=== PATIENT | male | born 1980 | race Caucasian/White ===

== ENCOUNTER 2023-09-25 17:42 | Emergency (ER) | payer OTHER, SELFPAY ==
--- NOTE | 2023-09-25 | ECG_ITS ---
Test Reason : CHEST PAIN Blood Pressure : / mmHG Vent. Rate : 097 BPM Atrial Rate : 097 BPM P-R Int : 154 ms QRS Dur : 088 ms QT Int : 338 ms P-R-T Axes : 053 -11 022 degrees QTc Int : 429 ms Normal sinus rhythm Nonspecific ST abnormality Abnormal ECG No previous ECGs available Referred By: Generic ED Physician Electronically Signed By:ARAM GRAY
--- NOTE | ~2023-09-25 | XR_ITS ---
EXAMINATION: XR CHEST CLINICAL INFORMATION: Chest pain COMPARISON: None available. TECHNIQUE: Frontal view of the chest was obtained. FINDINGS: There is a 9 cm rounded mass with eggshell calcification in the left upper quadrant. This could be related to the kidney, spleen or even pancreatitis. Please correlate with past history as this is undoubtedly chronic. No significant abnormality is noted involving the heart, lungs, mediastinum, bony thorax or soft tissues. XR/XR chest 1V IMPRESSION: 1. No acute intrathoracic disease. 2. 9 cm rounded mass with eggshell calcification in the left upper quadrant.
[2023-09-25 18:07] LABS: MANUAL DIFF FLAG NO
[2023-09-25 18:08] LABS: Basophils Percent Auto 0.3 % (0-2); Eosinophils Percent Auto 0.4 % (0-4); Hematocrit 42.8 % (42.0-52.0); Hemoglobin 14.8 g/dl (14.0-18.0); Imm Gran Abs Auto 0.02 X10*3/uL (0.00-0.03); Imm Gran Pct Auto 0.2 % (0.0-0.4); Lymphocytes Absolute Auto 2.3 X10*3/uL (1.2-4.9); Lymphocytes Percent Auto 22.4 % (20-40); Mean Corpuscular HGB Conc 34.6 g/dl (31.0-36.0); Mean Corpuscular Hemoglobin 30.3 pg (27.0-33.0); Mean Corpuscular Volume 87.7 fL (80.0-98.0); Mean Platelet Volume 10.1 fL (9.4-12.4); Monocytes Absolute Auto 0.6 X10*3/uL (0.1-1.2); Monocytes Percent Auto 5.6 % (2-11); Neutrophils Absolute Auto 7.4 x10*3/uL (2.0-8.3); Neutrophils Percent Auto 71.1 % (45-73); Platelet Count 288 X10*3/uL (160-400); Red Blood Count 4.88 X10*6/uL (4.60-5.80); Red Cell Distribution Width 13.3 % (11.0-16.0); White Blood Count 10.3 X10*3/uL (4.8-10.8)
[2023-09-25 18:21] LABS: Alanine Aminotransferase 36 U/L (0-40); Albumin Level 4.9 g/dL (3.5-5.0); Alkaline Phosphatase 79 U/L (39-117); Anion Gap 14 (12-20); Aspartate Amino Transferase 24 U/L (5-37); Bilirubin Total 0.4 mg/dL (0.0-1.0); Blood Urea Nitrogen 18 mg/dL (9-16); Calcium 9.9 mg/dL (8.4-10.2); Carbon Dioxide 24 mmol/L (22-29); Chloride 105 mmol/L (96-108); Estimated Glomerular Filt Rate > 60; Glucose Random 110 mg/dL (60-115); Magnesium 2.2 mg/dL (1.6-2.6); Potassium 3.4 mmol/L (3.3-5.1); Sodium 140 mmol/L (135-145); Total Protein 8.5 g/dL (6.5-8.0)
[2023-09-25 18:29] LABS: Troponin-I High Sensitivity < 2.7 ng/L (<3.5-35.0)
[2023-09-25 18:34] VITALS: BP 153/92; PULSE 101; RESP 20; TEMP 36.7; O2SAT 98; BMI 25.1
--- NOTE | 2023-09-25 18:36 | ED_ITS ---
HPI - General Adult General Chief complaint: Chest Pain Stated complaint: Chest pain Related Data Allergies Allergy/AdvReac Type Severity Reaction Status Date / Time Sulfa (Sulfonamide Allergy Itching Verified 09/25/23 18:37 Antibiotics) COUNTS INCLUDE 234 BEDS AT THE [facility] Social History Social History Advance Directives: No Advance Directives Information Provided: No Physical Exam ED Vital Signs: Vital Signs - 24 hr 09/25/23 18:34 Temperature 98.1 F Pulse Rate 101 H Respiratory Rate 20 Blood Pressure 153/92 H Pulse Oximetry 98 Oxygen Delivery Method Room Air BMI result Body Mass Index 25.1 Course Course Course Narrative: This is an RME: Additional HPI, ROS, PE not included below will be deferred to primary provider. This is a 77-vzz[age]-rne-male, with no known medical problems, presenting to the ER with complaints of CP. He states that he had some SOB and felt anxious. SXS have since resolved and he is feeling better. He has an appointment with PCP tomorrow. VSS. Pt under no acute distress. Plan: Labs, EKG, CXR Medical Decision Making Lab Data 09/25/23 18:00 09/25/23 18:00 Labs: Lab Results 09/25/23 Range/Units 18:00 WBC 10.3 (4.8-10.8) X10*3/uL RBC 4.88 (4.60-5.80) X10*6/uL Hgb 14.8 (14.0-18.0) g/dl Hct 42.8 (42.0-52.0) % MCV 87.7 (80.0-98.0) fL MCH 30.3 (27.0-33.0) pg MCHC 34.6 (31.0-36.0) g/dl RDW 13.3 (11.0-16.0) % Plt Count 288 (160-400) X10*3/uL MPV 10.1 (9.4-12.4) fL Immature Gran % (Auto) 0.2 (0.0-0.4) % Neut % (Auto) 71.1 (45-73) % Lymph % (Auto) 22.4 (20-40) % [place] % (Auto) 5.6 (2-11) % Eos % (Auto) 0.4 (0-4) % Baso % (Auto) 0.3 (0-2) % Lymph # (Auto) 2.3 (1.2-4.9) X10*3/uL [place] # (Auto) 0.6 (0.1-1.2) X10*3/uL Eos # (Auto) 0.0 (0.0-0.4) X10*3/uL Baso # (Auto) 0.0 (0.0-0.2) X10*3/uL Abs Immat Gran (auto) 0.02 (0.00-0.03) X10*3/uL Absolute Neuts (auto) 7.4 (2.0-8.3) x10*3/uL Absolute Nucleated RBC 0.000 (0.0-0.012) X10*3/uL Nucleated RBC % (auto) 0.0 (0.0-0.2) /100WBC Sodium 140 (135-145) mmol/L Potassium 3.4 (3.3-5.1) mmol/L Chloride 105 (96-108) mmol/L Carbon Dioxide 24 (22-29) mmol/L Anion Gap 14 (12-20) BUN 18 H (9-16) mg/dL Creatinine 0.88 (0.5-1.4) mg/dL Estim Creat Clear Calc TNP Estimated GFR > 60 Random Glucose 110 (60-115) mg/dL Calcium 9.9 (8.4-10.2) mg/dL Magnesium 2.2 (1.6-2.6) mg/dL Total Bilirubin 0.4 (0.0-1.0) mg/dL AST 24 (5-37) U/L ALT 36 (0-40) U/L Alkaline Phosphatase 79 (39-117) U/L Troponin I High Sens < 2.7 (<3.5-35.0) ng/L Total Protein 8.5 H (6.5-8.0) g/dL Albumin 4.9 (3.5-5.0) g/dL Influenza Type A (PCR) NEGATIVE (Negative) Influenza Type B (PCR) NEGATIVE (Negative) RSV RNA Qual (PCR) NEGATIVE (Negative) SARS-CoV-2 RNA (RT-PCR) NEGATIVE (Negative) Discharge Plan Discharge Clinical Impression: Chest pain Patient Disposition: Left W/O Completing Treatment Interventions: LWBS Worksheet Last Done: 09/25/23 22:11 Discharge Date/Time: 09/25/23 22:11
[2023-09-25 18:43] LABS: Influenza A PCR NEGATIVE (Negative); Influenza B PCR NEGATIVE (Negative); Resp Syncy Virus RNA Qual PCR NEGATIVE (Negative); SARS COV2 PCR INHOUSE NEGATIVE (Negative)
== END 2023-09-25 22:11 | disposition left against medical advice (07) ==
PROVIDERS: Emergency Provider Emergency Medicine
DX: R07.9 Chest pain, unspecified (principal); Z11.52 Encounter for screening for COVID-19; Z20.828 Contact with and (suspected) exposure to other viral communicable diseases
CPT/HCPCS: 0241U; 36415; 71045; 80053; 83735; 84484; 85025; 93005; 99283

== ENCOUNTER → 2023-09-25 17:50 | Outpatient (BNV) | payer OTHER, SELFPAY | PROVIDERS: Emergency Provider Emergency Medicine; Visit Provider Internal Medicine | DX: R07.9 Chest pain, unspecified (principal) | CPT/HCPCS: 93010 ==

== ENCOUNTER 2025-05-17 09:56 | Emergency (ER) | payer OTHER, SELFPAY ==
--- OUTSIDE RECORDS SUMMARY | 2025-05-14 10:10 | XMS_ITS | Encounter Summary ---
Author Organization [facility] Address [address] [place] [id number] Phone Care Team Providers Care Sanitation Worker Cleaning Machinery Name Role Phone Anisha Jameson KELLY Primary Care Provider [phone] Rabia Payne MD Unavailable [phone] Reason for Visit * Reason Comments Rash Red, raised, itchy a nd tender rash x 1 month with worsening. Tx'd with Triamcinolone that didn't help. Now has swollen lymph nodes in left axilla. Encounter Details Date Type Department Care Team (Late st Contact Info) Description 05/14/2025 10:10 AM EST Office Visit [facility] [address] [address] Tasha Mendieta, SCREW MACHINE SET UP OPERATOR [address] [place] [address] [email or web address] Tinea (Primary Dx); Axillary adenopathy Social History Tobacco Use Types Packs/Day Years Used Date Smoking Tobacco: Former Cigarettes 1 4 0 03/07/2000 - 03/07/2004 Smokeless Tobacco: Never Tobacco Cessation:Counseling Given: Not Answered Alcohol Use Standard Drinks/Week Comments Yes 0 (1 standard drink = 0.6 oz pur e alcohol) one beer a month Child or Family Care Answer Date Record ed Do you have problems with on e of the following making it difficult for you to work, study, or receive health care? No 06/13/2023 Education Answer Date Recorded Are you interested in help w ith more adult education (for example, completing high school, GED, job training, learning the [place] language, technical skills, or developing parenting skills)? No 06/13/2023 Are you concerned about learning? Not on file 06/13/2023 No 06/13/2023 Yes 06/13/2023 Food Answer Date Recorded Within the past 6 months we worried whether our food would run out before we got money to buy more. Never True 06/13/2023 Within the past 6 months the food we bought just didn't last and we didn't have enough money to get more. Never True Residential Stability Answer Date Recor ded What is your housing situation today? I have cameron sing 06/13/2023 How many times have you move d in the past 12 months? Zero (I did not move) 06/13/2023 Paying for Meds Answer Date Recorded Do you have trouble paying for medicines? No 06/13/2023 Paying Utility Bills Answer Date Record ed Do you have trouble paying your heating or elect ricity bill? No 06/13/2023 Transportation Answer Date Recorded Has the lack of transportati on kept you from medical appointments or from getting medications? No 06/13/2023 Unemployment Answer Date Recorded Are you currently unemployed or working on a part-time or temporary basis, and looking for work? No 06/13/2023 Digital Access Answer Date Recorded No 06/13/2023 Yes 06/13/2023 Do you have reliable internet access at home? Ye s 06/13/2023 Do you have a device (e.g., phone, tablet, computer) with a working camera? Yes 06/13/2023 Intimate Partner Violence Answer Date R ecorded Are you denied basic needs s uch as food, clothing, or medical care? No 10/26/2024 In the past 12 months have y ou been in a relationship with a person who hurts, threatens, or tries to control you? No 10/26/2024 Are you denied basic needs s uch as food, clothing, or medical care? No 10/26/2024 In the past 12 months have y ou been in a relationship with a person who hurts, threatens, or tries to control you? No 10/26/2024 Sex and Gender Information Value Date Recorded Sex Assigned at Not on file Legal Sex Male 8:57 AM EDT Gender Identity Not on file Sexual Orientation Not on file documented as of this encounter Last Filed Vital Signs Vital Sign Reading Time Taken Comments Blood Pressure 137/83 05/14/2025 11:01 AM EST Pulse 86 05/14/2025 11:01 AM EST Temperature 36.7 C (98 F) 05/14/2025 11:01 AM EST Respiratory Rate 16 05/14/2025 11:01 AM EST Oxygen Saturation 100% 05/14/2025 11:01 AM EST Inhaled Oxygen Concentration - - Weight 95.3 kg (210 lb) 05/14/2025 11:01 AM EST Height - - Body Mass Index 30.13 05/11/2024 8:30 AM EST documented in this encounter Patient Instructions * Patient Instructions* Tasha Mendieta CNP - 05/14/2025 10:10 AM EST Follow up with your PCP regarding the swelling in your left axilla Follow up at Urgent Care if rash not improving in 2 weeks documented in this encounter Progress Notes * Tasha Mendieta CNP - 05/14/2025 10:10 AM EST Images from the original note were not included. Subjective: Patient ID: Oliverio Mercer is a 44 y.o. male. Pt c/o itchy red rash on right inner thigh x few weeks. Was rx'd triamcinolone by another UC which made it worse. Also notes swelling in left axilla, not sure if its related. Review of Systems Hematological: Positive for adenopathy. Skin: Positive for persistent rash. Vitals: 05/14/25 1101 BP: 137/83 BP Location: Left arm Patient Position: Sitting Cuff Size: Large Pulse: 86 Resp: 16 Temp: 36.7 ??C (98 ??F) TempSrc: Temporal SpO2: 100% Weight: 95.3 kg (210 lb) Objective: Physical Exam Constitutional: General: He is not in acute distress. Appearance: Normal appearance. He is well-developed. He is not ill-appearing. HENT: Head: Normocephalic and atraumatic. Right Ear: External ear normal. Left Ear: External ear normal. Nose: Nose normal. Pulmonary: Effort: Pulmonary effort is normal. Lymphadenopathy: Upper Body: Left upper body: Axillary adenopathy present. Skin: General: Skin is warm and dry. Findings: Rash (right thigh) present. Rash is macular. Rash is not crusting. Neurological: General: No focal deficit present. Mental Status: He is alert and oriented to person, place, and time. Psychiatric: Mood and Affect: Mood normal. Behavior: Behavior normal. Thought Content: Thought content normal. Judgment: Judgment normal. No results found for this visit on 05/14/25. Procedure: Procedures Assessment/Plan: Diagnosis Plan 1. Tinea 2. Axillary adenopathy Assessment and Plan: Rash - Appears fungal, which is supported by worsening with steroid cream - Started on clotrimazole -Reviewed expected course and follow up Lymphadenopathy - Left axillary node is enlarged but smooth - No s/s local infection to explain lymphadenopathy - Recommend follow up with PCP for ultrasound documented in this encounter Plan of Treatment Upcoming Encounters Date Type Department Care Team (Late st Contact Info) Description 05/25/2025 11:00 AM EST Office Visit [facility] [address] [place] [address] Unknown, Unknown, MD Sanchez, Marjorie Lee, YADY [address] [place] [address] 06/10/2025 8:45 AM EST Office Visit [facility] [address] [place] [address] Anisha Jameson FNP [address] [facility], [address] [place] [address] [email or web address] documented as of this encounter Visit Diagnoses Diagnosis Tinea- Primary Dermatophytosis of unspecified site Axillary adenopathy Enlargement of lymph nodes documented in this encounter Additional Health Concerns Assessment Noted Time PHQ-2 Depression Total Score: 0 06/13/20 23 10:47 AM EST documented as of this encounter Care Teams Sanitation Worker Cleaning Machinery Relationship Specialty Start Date End Date Anisha Jameson Katherine, EXHIBITION CARVER [address] [facility], [address] [place] [address] [email or web address] PCP - General Family Medicine 03/21/21 Rabia Payne MD [address] [facility] [address] [place] [address] [email or web address] Insurance Assigned Provider 10/12/23 documented as of this encounter Additional Source Comments The information contained in this document represents components of the legal health record. It is not the complete legal health record.[facility]
[2025-05-17 10:04] VITALS: BP 148/97; PULSE 98; RESP 16; TEMP 36.6; O2SAT 98; BMI 30.1
--- NOTE | 2025-05-17 10:04 | ED_ITS ---
HPI - General Adult General Chief complaint: Skin/Abscess/Foreign Body Stated complaint: Skin Rash / underarm abscess? Time Seen by Provider: 05/17/25 10:09 Source: patient Mode of arrival: ambulatory Limitations: no limitations History of Present Illness ED Provider: Eveline Yoon PA-C HPI narrative: Patient is a 44 year old assigned male at with a history of recent folliculuitis presenting to the emergency department today with continued swelling in the left axilla. Patient states that he recently had an inflamed follicle in the left arm pit that has resolved but he has a lump above where it was that remains swollen / painful. Patient states that he has health anxiety and his recommended he come have it evaluated. Patient denies any fever, chills, or other complaints at this time. Related Data Allergies Allergy/AdvReac Type Severity Reaction Status Date / Time Sulfa (Sulfonamide Allergy Itching Verified 05/17/25 10:07 Antibiotics) Review of Systems 2 Constitutional: Constitutional: Reports as per HPI Eyes: Eyes: Reports as per HPI ENT: Reports as per HPI Cardiovascular: Cardiovascular: Reports as per HPI Respiratory: Respiratory: Reports as per HPI Gastrointestinal: Gastrointestinal: Reports as per HPI Genitourinary: Genitourinary: Reports as per HPI Musculoskeletal: Musculoskeletal: Reports as per HPI Integumentary/Breasts: Skin/Breast: Reports as per HPI Neurologic: Reports as per HPI Psychiatric: Psychiatric: Reports as per HPI Endocrine: Endocrine: Reports as per HPI Hematologic/Lymphatic: Hematologic/Lymphatic: Reports as per HPI Allergic/Immunologic: Allergic/Immunologic: Reports as per HPI PMF Past Medical History Attestation statement: The following information was validated with the patient. Source: old records reviewed and nursing notes reviewed Social History Social History Advance Directives: No Advance Directives Information Provided: No Physical Exam ED Vital Signs: Vital Signs - 24 hr 05/17/25 10:04 05/17/25 10:18 Temperature 97.9 F 97.9 F Pulse Rate 98 98 Respiratory Rate 16 16 Blood Pressure 148/97 H 148/97 H Pulse Oximetry 98 98 Oxygen Delivery Method Room Air Room Air BMI result Body Mass Index 30.1 Const General: cooperative, no acute distress, alert and awake Nutritional Appearance: well nourished Orientation/consciousness: patient oriented x3 HENMT Head: Yes normal to inspection and Yes atraumatic Ears: hearing grossly normal bilaterally and external ears normal General nose exam: Normal external nose present, no nasal discharge noted and no epistaxis Face and sinus: Yes normal facial exam, No abrasion and No laceration Mouth: Normal oral and palatal mucosa present, no drooling and no muffled voice Eyes General: appearance normal, both eyes and all related structures Periorbital: periorbital findings normal Eyelids: Yes eyelids normal Conjunctivae: conjunctivae normal Pupils: Equal, round and reactive pupils present EOM: EOMs intact bilaterally Neck Neck: Yes normal visual inspection and Yes full ROM Chest Chest/axillae images: 2 1. small mobile + minimally hard mass (consistent with lymph node) Resp Effort & Inspection: normal respiratory effort and able to speak in complete sentences Neuro General: patient oriented x3, moves all extremities and CN's II-XI intact bilaterally Cranial nerves: Yes Equal, round and reactive pupils present Cognition (Neuro): normal cognition Extrem General: Yes full ROM and Yes capillary refill normal Psych Appearance: grossly normal Mental Status: mental status grossly normal Affect: normal affect Attitude: cooperative Thought process: Normal thought process present Thought content: Normal thought content present Insight: Good insight present (Psych) Medical Decision Making Medical Decision Making MDM Narrative: Patient is a 44 year old assigned male at with a history of recent folliculuitis presenting to the emergency department today with continued swelling in the left axilla. Patient's physical exam was as noted in the physical exam portion of this note. The area of concern had no erythema, no warmth, and no fluctuance. The area felt like a singular swollen lymph node vs. cyst. I explained my physical exam findings to the patient. I answered all questions asked by the patient. I stressed the importance of the patient taking his medication as directed (either prescribed or as the over the counter packaging recommends). I stressed the importance of the patient following up with his primary care provider and a general surgeon for further evaluation of this lump on a non-emergent basis. I stressed the importance of the patient returning to the emergency department immediately if his symptoms were to worsen or if he were to develop any dizziness, shortness of breath, difficulty breathing, chest pain, blurry vision, loss of vision, nausea, vomiting, abdominal pain, fever, chills, back pain, or any other complaints. Patient verbalized agreement and understanding with this treatment plan and discharge. Differential Diagnosis Differential Diagnoses: The differential diagnosis associated with the presentation includes Left axillary swelling Left axillary cyst Left axillary lymphadenopathy Admission/Observation Consideration of admission/observation: Escalation of care including admission/observation considered Patient would have been admitted to the hospital had his clinical presentation warranted hospital admission. Tests considered The following testing was considered but not selected: I considered obtaining a CBC, CMP, ESR, CRP, and an ultrasound of the area however, the patient's current clinical presentation does not warrant this on an emergent basis at this time. Discharge Plan Discharge Clinical Impression: Lymphadenopathy Patient Disposition: Home, Self-Care Instructions: Lymphadenopathy (ED) Additional Instructions: The area in your left axilla feels as though it is a swollen lymph node vs. a cystic structure but it is not an abscess that needs incised and drained at this time. Please follow up with a general surgeon and your primary care provider to discuss next steps for this (ultrasound vs. excision). IF you are prescribed home medications and/or you are taking over the counter medications at home - it is very important you continue to do so as prescribed / directed unless told otherwise. Return to the emergency department immediately if your symptoms worsen or if you develop any numbness, tingling, dizziness, shortness of breath, difficulty breathing, chest pain, blurry vision, loss of vision, nausea, vomiting, abdominal pain, fever, chills, back pain, or any other complaints. Please see the information below about our Patient Portal. If you are not yet enrolled in the [facility] Patient Portal, you will receive an enrollment email invitation following your visit to any [facility] setting. You may also self-enroll in the Patient Portal by visiting our website: [email or web address] The following information is required to access the Patient Portal: - Your [facility] Medical Record Number - Your personal home email address (must match what is in your electronic medical record, Registration staff can assist with this) - Name - Date of Capabilities of the Patient Portal: - Message some providers - View upcoming appointments - Access your health summary, medical history, and visit history - View current conditions and allergies - View procedure and lab results - View your medications, including guidelines, side effects, and precautions - Complete pre-appointment questionnaires requested by your provider - Ready summary reports of your office visits and procedures To access the Patient Portal Mobile Libra, follow these directions: - Search [employer] in the Libra Store or [employer] To Get Approved For Store - Download the Libra - Search for [facility] - Enter your login/password Referrals: [facility] General Surgeons [Provider Group, General Surgery] Referral Note: Call to establish and follow up with a general surgeon to discuss the left axillary lymph node vs. cystic structure further. Stand Alone Forms: Work/School Release Interventions: ED Discharge Assessment Last Done: 05/17/25 10:18 Discharge Date/Time: 05/17/25 10:20 Print Language: Spanish
[2025-05-17 10:18] VITALS: BP 148/97; PULSE 98; RESP 16; TEMP 36.6; O2SAT 98
--- OUTSIDE RECORDS SUMMARY | 2025-05-17 11:58 | XMS_ITS | Clinical Summary ---
Author Organization [facility] Address [address] [facility] [address] [place] [address] Phone Care Team Providers Care Tennis Desk Team Member Name Role Phone Anisha Jameson Katherine MENDOZA Primary Care Provider [phone] Rabia Payne MD Unavailable Allergies Active Allergy Reactions Criticality Noted Date Comments Sulfa (Sulfonamide Antibiotics) Rash Low 02/07 Sulfamethoxazole-Trimethoprim Hives Low 2016 Medications omeprazole (PRILOSEC) 10 MG capsule Take 10 mg by mouth daily. Active cyclobenzaprine (FLEXERIL) 5 MG tablet Take 5 mg by mouth. 1 Active LORazepam (ATIVAN) 0.5 MG tabletIndications: Panic attack Take 1 tablet (0.5 mg total) by mouth daily as needed for anxiety. 10 tablet 4 Active albuterol 90 mcg/actuation inhalerIndications :Moderate persistent asthma without complication Inhale 2 puffs into the lungs every 4 (four) hours as needed for wheezing. 8 g 2 4 Active ibuprofen (ADVIL,MOTRIN) 800 MG tablet Take 1 tablet (800 mg total) by mouth every 8 (eight) hours as needed for pain (specific location in comments). 30 tablet 4 Active atorvastatin (LIPITOR) 80 MG tabletIndications: Mixed hyperlipidemia TAKE 1 TABLET BY MOUTH EVERY DAY 90 tablet 3 4 Active hydroCHLOROthiazid e 12.5 mg capsuleIndications :Benign essential hypertension TAKE 1 CAPSULE BY MOUTH EVERY DAY 90 capsule 3 5 Active sertraline (ZOLOFT) 50 MG tablet TAKE 1 TABLET BY MOUTH EVERY DAY 90 tablet 3 5 Active omeprazole (PRILOSEC) 20 MG tablet Active simvastatin (ZOCOR) 40 MG tablet TAKE 1 TABLET BY MOUTH EVERYDAY AT BEDTIME Active triamcinolone acetonide 0.025 % cream USE 1 APPLICATOR TOPICALLY TWICE A DAY FOR 14 DAYS 5 Active clotrimazole (LOTRIMIN) 1 % cream Apply topically 2 (two) times a day. 30 g 5 Active Active Problems Problem Noted Date Diagnosed Date Attention deficit disorder (ADD) without hyperac tivity 09/18/2021 Assessment & Plan (10/16/2022 10:39 AM EDT): Stable, currently off stimulant treatment. Assessment & Plan (02/27/2022 12:57 PM EDT): Stable, resume the adderall XR 20 mg, we'll see him back in 3 months for med and BP check. Assessment & Plan (11/29/2021 10:38 AM EDT): Good response to adderall XR 20 mg daily, continue the same, pt signed CSA today, we'll see him back in 3 months for med check. Assessment & Plan (09/18/2021 12:04 PM EDT): We will start adderall XR 20 mg daily - reviewed the requirements of the controlled substance monitoring program and side effect profile of the medication, needs to administer in the morning with breakfast. PDMP reviewed. We'll see him back in 3 weeks to assess response. Benign essential hypertension 03/07/2021 Assessment & Plan (10/16/2022 10:39 AM EDT): Well controlled, continue the HCTZ Assessment & Plan (09/18/2021 12:03 PM EDT): Well controlled, continue HCTZ 12.5 mg daily. Assessment & Plan (03/21/2021 5:11 PM EDT): Good response to HCTZ 12.5 mg daily, continue same, see him back in 6 months. Assessment & Plan (03/07/2021 5:03 PM EDT): We are starting HCTZ 12.5 mg daily, discussed administration and side effect profile, discussed continuing home BP checks, see him back in 2 wks. Mixed hyperlipidemia 03/07/2021 Assessment & Plan (03/07/2021 5:05 PM EDT): Continue zocor, he has been taking this for 5-6 yrs. Mild intermittent asthma without complication Assessment & Plan (10/16/2022 10:39 AM EDT): Well controlled Assessment & Plan (09/18/2021 12:03 PM EDT): Much improved since he change his oral antihistamine from zyrtec to claritin, now off flovent and not needing albuterol for a few weeks; referral to seo analyst is made. Assessment & Plan (03/07/2021 5:03 PM EDT): Start flovent and renewed albuterol; discussed the administration of flovent and need to do oral hygiene after administration; see him back in two weeks. Seasonal allergic rhinitis 03/07/2021 Assessment & Plan (03/07/2021 5:04 PM EDT): Change mallorie to zyrtec once daily; recommend consistency with flonase daily, see him back in two weeks to see the impact of this intervention. Anxiety 02/20/2017 Assessment & Plan (10/16/2022 10:39 AM EDT): Well controlled, continue the zoloft. Assessment & Plan (09/18/2021 12:04 PM EDT): Stable, continue the zoloft 50 mg daily. Resolved Problems Problem Noted Date Diagnosed Date Resolved Date Cellulitis of right lower extremity 07/03/2022 10/16/2022 Assessment & Plan (07/03/2022 12:11 PM EST): Changes diagnosed with a cellulitis of the right lower extremity-kneecap region. I wrote a 5-day prescription of Keflex-to be taken as directed. Also given guidance regarding ibuprofen and heat to the site as needed. He will call if things get worse or if there are any other issues or concerns. He understands and agrees. Cough 03/07/2021 09/18/2021 Assessment & Plan (03/07/2021 5:05 PM EDT): 4-5 months duration in setting of uncontrolled asthma and allergies, start flovent, zyrtec, take flonase daily; see him back in 2 weeks. Encounters Date Type Department Care Team Description 05/14/2025 10:10 AM EST Office Visit [facility] at [address] [address] Tasha Mendieta, COLEEN Henson (Primary Dx); Axillary adenopathy 05/14/2025 Telephone [facility] [address] [place], [place] [id number] Anisha Jameson, KELLY Swelling in armpit from Last 3 Months Immunizations Immunization Administration Dates Next Due COVID-19 (Pre-04/29) Pfizer Vaccine, mRNA, PF 10/06/2020,09/14/2020 INFLUENZA, SPLIT VIRUS, TRIVALENT PF 05/11/2024 Influenza Quadrivalent MDCK Preservative Free IM 05/07/2019 Influenza Quadrivalent Preservative Free IM 06/07,03/21/2021,04/18/2018 Influenza, Unspecified Formulation 05/07/2019, Pneumococcal polysaccharide PPSV23 03/21/2021 Tdap 02/20/2017 Family History Medical History Relation Comments Colon polyps Father Diabetes type II Father Skin cancer Father Stroke Paternal Grandfather Throat cancer Paternal Grandmother Stroke Paternal Uncle Relation Status Comments Father Paternal Grandfather Paternal Grandmother Paternal Uncle Social History Tobacco Use Types Packs/Day Years [...] high school, GED, job training, learning the [place] language, technical skills, or developing parenting skills)? [...] on file Sexual Orientation Not on file Last Filed Vital Signs Vital Sign Reading Time Taken Comments Blood Pressure 137/83 05/14/2025 11:01 AM EST Pulse 86 05/14/2025 11:01 AM EST Temperature 36.7 C (98 F) 05/14/2025 11:01 AM EST Respiratory Rate 16 05/14/2025 11:01 AM EST Oxygen Saturation 100% 05/14/2025 11:01 AM EST Inhaled Oxygen Concentration - - Weight 95.3 kg (210 lb) 05/14/2025 11:01 AM EST Height 177.8 cm (5' 10 ) 05/11/2024 8:30 AM EST Body Mass Index 30.13 05/11/2024 8:30 AM EST Plan of Treatment Upcoming Encounters Date Type Department Care Team (Late st Contact Info) Description 05/25/2025 11:00 AM EST Office Visit [facility] [address] [place] [address] Unknown, Unknown, MD Sanchez, Marjorie Lee, FOOD EXPEDITOR [address] [place] [address] 06/10/2025 8:45 AM EST Office Visit [facility] [address] [place] [address] Anisha Jameson FNP [address] [facility], [address] [place] [address] [email or web address] Health Maintenance Due Date Last Done Comments PNEUMOCOCCAL VACCINES (0-49 years) (2 of 2 - PCV) 03/21/2022 03/21/2021 DEPRESSION SCREENING 06/13/2024 06/13/2023 INFLUENZA VACCINE (#1) 2025 , 06/18/2023, 03/21/2021, Additional history exists COVID-19 VACCINE ( - 2024- season) 2025 05/24/2021, 10/06/2020, 09/14/2020 POTASSIUM LEVEL 05/11/2025 05/11/2024, 06/07, 10/05/2022, Additional history exists BLOOD PRESSURE 11/11/2025 05/14/2025 Adult Td,Tdap Booster 02/20/2027 02/20/2017 SCREENING FOR DIABETES 05/11/2027 05/11/2024, 2023 LIPID PANEL 05/11/2029 05/11/2024, 06/07, 06/18/2023, Additional history exists HEPATITIS C SCREENING Completed 03/07/2021, 021 HIV ONE-TIME SCREENING (18-65 YEARS) Completed 03/07/2021 SMOKING STATUS SCREENING (Once After 26 Yrs) Completed 05/14/2025 HEPATITIS A VACCINES Aged Out No long er eligible based on patient's age to complete this topic HIB VACCINES Aged Out No longer eligi ble based on patient's age to complete this topic IPV VACCINES Aged Out No longer eligi ble based on patient's age to complete this topic MENINGOCOCCAL VACCINES (ACWY) Aged Out No longer eligible based on patient's age to complete this topic MENINGOCOCCAL VACCINES (B) Aged Out N o longer eligible based on patient's age to complete this topic Medical Devices Implanted Type Area Fishing Hand Device Identifier Shelf Expiration Date Model / Serial / Lot Hardware Left: Hand Procedures Procedure Name Priority Date/Time Associated Diagnosis Comments LIPID PANEL Routine 05/11/2024 8:45 AM EST Mixed hyperlipidemia COMPREHENSIVE METABOLIC PANEL (CMP) Routine 05/11/2024 8:45 AM EST Benign essential hypertension HEPATITIS C ANTIBODY, QUALITATIVE Routine 03/07/2021 2:36 PM EDT Need for hepatitis C screening test from Last 3 Months or Most Recently Relevant to Health Maintenance Results * Comprehensive metabolic panel (05/11/2024 8:45 AM EST) SODIUM 141 133 - 146 mmol/L [facility] POTASSIUM 4.2 3.3 - 5.1 mmol/L [facility] CHLORIDE 101 96 - 108 mmol/L [facility] CO2 30 21 - 35 mmol/L [facility] BUN 14 6 - 19 mg/dL [facility] CREATININE 0.90 0.5 - 1.5 mg/dL [facility] GLUCOSE 96 70 - 99 mg/dL [facility] ALBUMIN 4.6 3.9 - 4.8 g/dL [facility] TOTAL PROTEIN 7.8 6.5 - 8.0 g/dL [facility] CALCIUM 9.7 8.4 - 10.3 mg/dL [facility] ALKALINE PHOSPHATASE 81 39 - 117 U/L [facility] TOTAL BILIRUBIN 0.6 0.0 - 1.2 mg/dL [facility] AST 36 0 - 37 U/L [facility] ALT 32 0 - 40 U/L [facility] GLOBULIN 3.2 1 - 4.8 g/dL [facility] EGFR 109 >59 mL/min/1.7 3m2 [facility] Comment:Estimated glomerular filtration rate calculated using the CKD-EPI refit equation. ANION GAP 14 10 - 20 mmol/L [facility] Blood 05/11/2024 8:45 AM EST 05/11/2024 8:48 AM EST us Anisha Jameson HEAD LOADER LAB BLOOD BKR ORDERABLES Kelli l Result [address] [address] * (ABNORMAL) Lipid panel (05/11/2024 8:45 AM EST) HDL 43 mg/dL [facility] Comment: Interpretation <40 mg/dL: Low HDL cholesterol (major risk factor for CHD) Greater than or equal to 60 mg/dL: High HDL cholesterol ( negative risk factor for CHD) HDL - cholesterol is affected by a number of factors, e.g. smoking, excerise, hormones, sex and age. CHOLESTEROL 190 0 - 240 mg/dL [facility] TRIGLYCERIDES 241(H) 30 - 160 mg/dL [facility] LDL 99 50 - 129 mg/dL [facility] Comment: LDL levels in terms of risk for coronary heart disease: <100 mg/dL: Optimal 100-129 mg/dL: Near or above optimal 130-159 mg/dL: Borderline high 160-189 mg/dL: High >190 mg/dL: Very High CARDIAC RISK RATIO 4.4 3.4 - 5.0 C [facility] Blood 05/11/2024 8:45 AM EST 05/11/2024 8:48 AM EST [facility] LAB BLOOD BKR ORDERABLES Kelli l Result [address] [address] * Hepatitis C antibody, qualitative (03/07/2021 2:36 PM EDT) HCV NON-REACTIV E NON-REACTI VE [facility] Blood 03/07/2021 2:36 PM EDT 03/07/2021 2:38 PM EDT [facility] LAB BLOOD BKR ORDERABLES Kelli l Result Performing Organization Address City/[facility]/ZIP Co de Phone Number [address] [address] from Last 3 Months or Most Recently Relevant to Health Maintenance [facility] POS EPO [facility] E[facility] POS EPO [facility] POS EPO [facility] POS EPO Care Teams Tennis Desk Team Member Relationship Specialty Start Date End Date Anisha Jameson December, HEAD LOADER [address] [facility], [facility] [address] [place] [address] [email or web address] PCP - General Family Medicine 03/21/21 Rabia Payne MD [address] [facility], [facility] [address] [place] [address] [email or web address] Insurance Assigned Provider 10/12/23 Additional Source Comments The information contained in this document represents components of the legal health record. It is not the complete legal health record.[facility]
--- OUTSIDE RECORDS SUMMARY | 2025-05-17 11:58 | XMS_ITS | Data Portability ---
Author Organization [facility] [address] Address [address] [place] [address] Care Team Providers Care Tattoo And Body Artist Name Role Phone [facility] Assessment No assessment recorded. Plan of Treatment Reminders Order Date Submit Date Provider Last Modified By Organization Details Last Modified Time Details Appointments None recorded. Lab None recorded. Referral None recorded. Procedures None recorded. Surgeries None recorded. Imaging None recorded. Medication Orders cyclobenzap rine 10 mg tablet 2022 023 [id number], [address] [place], [address], 10:41:05 ibuprofen 800 mg tablet 2022 023 [id number], [address] [place], [address], 10:41:05 Patient TargetsNo targets recorded. Patient Instructions Encounter Date Encounter Id Patient Instructions Last Modified By Organization Details Last Modified Time 01/01/2023 [id number] getting back to normal after low back pain: care instructions Not available 01/01/2023 10:41:00 back strain: car e instructions Not available 01/01/2023 10:41:00 Reason for Referral None Reported. Problems Name Problem SNOMED Code Status Onset Date Resolution Date Notes Provider Name and Address Organization Details Recorded Time Hypertensive disorder 49865381 Active 2022 [facility] 09:50:58 Hyperlipidemia 96615481 Active 2022 [facility] 09:51:03 Anxiety 98282779 Active 2022 Judit Power null, [place] - [facility] 09:51:07 Gastroesophage al reflux disease 849077040 Active 2022 Judit Power null, [place] - [facility] 09:51:11 Problem Notes None recorded. Medical Equipment None Reported. Allergies Allergen ID Allergen Name Allergen Category Reaction Reaction Severity Criticality Documentation Date Start Date Code Code System Note Provider Name and Address Organization Details Recorded Time 977444 Substance with sulfonami de structure and antibacte rial mechanism of action (substanc e) medicatio n hives Not available Not available 01/01/2023 27503 8003 SNOMED Judit Power null, [place] - [facility] 09:50:22 Medications Name Sig Start Date Stop Date Status Note LastModified by Organization Details LastModified Time cyclobenzap rine 10 mg tablet Take 1 tablet twice a day by oral route as needed for 5 days. 2022 active Not Available Not Available Not Avai lable atorvastati n 40 mg tablet TAKE 1 TABLET BY MOUTH EVERY DAY active Not Available Not Available No t Available triazolam 0.25 mg tablet TAKE 1 TAB BY MOUTH SINGLE DOSE DIRECTED 1 HOUR PRIOR TO SURGERY. BRING SECOND PILL TO APT 01/01 completed Not Available Not Available Not Available ibuprofen 800 mg tablet Take 1 tablet 3 times a day by oral route as needed for 5 days. 2022 active Not Available Not Available Not Avai lable triamcinolo ne acetonide 0.1 % topical cream APPLY ONCE DAILY TO FACE FOR 2 WEEKS THEN DISCONTIN UE. 01/01 completed Not Available Not Available Not Available simvastatin 40 mg tablet TAKE 1 TABLET BY MOUTH EVERYDAY AT BEDTIME active Not Available Not Available No t Available amoxicillin 875 mg tablet TAKE 1 TABLET BY MOUTH TWICE A DAY DIRECTED UNTIL FINISHED START 1 DAY BEFORE SURGERY 01/01 completed Not Available Not Available Not Available cephalexin 500 mg capsule TAKE 1 CAPSULE BY MOUTH 3 TIMES A DAY FOR 5 DAYS 01/01 completed Not Available Not Available Not Available hydrochloro thiazide 12.5 mg capsule TAKE 1 CAPSULE BY MOUTH EVERY DAY active Not Available Not Available No t Available mupirocin 2 % topical ointment APPLY TO AFFECTED AREA 3 TIMES A DAY 01/01 completed Not Available Not Available Not Available sertraline 50 mg tablet TAKE 1 TABLET BY MOUTH EVERY DAY active Not Available Not Available No t Available chlorhexidi ne gluconate 0.12 % mouthwash RINSE WITH 15 ML'S TWO TIMES PER DAY FOR 30 SECONDS THEN EXPECTORA TE START THE MORNING AFTER SURGERY 01/01 completed Not Available Not Available Not Available omeprazole active Not Available Not Av ailable Not Available Vitals Date Recorded Body height Body mass index (BMI) Body weight Pain severity - 0-10 verbal numeric rating [Score] - Reported Respiratory rate Oxygen saturation Oxygen saturation in Arterial blood by Pulse oximetry Heart rate Body temperature Systolic And Diastolic Provider Name and Address Organization Details Last Updated DateTime 180.34 cm 28.6 kg/m2 57956.4 4 g 8 18 /min 98 % 98 % 92 /min 98 [degF] 121/85 mm[Hg] Judit Power [facility] 09:52:33 Social History Question Answer Notes LastModified by [employer] Details LastModified Time Tobacco Smoking Status Never Smoker Judit berger [facility] 01/01/2023 09:51:21 Which Illicit Or Recreational Drugs Have You Used? Marijuana Information not available 01/01/2023 Have You Had Direct Contact, Or Contact During Intimacy, With Monkeypox Rash, Scabs, Or Body Fluids From A Person With Monkeypox? No Information not available 01/01/2023 Have You Recently Traveled Abroad? No Information not available 01/01/2023 Sex: Unknown Functional Status Question Answer Note LastModified by [employer] Details LastModified Time Do you use any illicit or recreational drugs? Yes Information not available 01/01/2023 Do you or have you ever used any other forms of tobacco or nicotine? No Information not available 01/01/2023 What is your level of alcohol consumption? None Information not available 01/01/2023 Mental Status None recorded. Family History Relationship Description Onset Age of this Age Resolved Age Notes LastModified by Organization Details LastModified Time Father No current problems or disability Not available 01/01 09:51:12 Mother No current problems or disability Not available 01/01 09:51:12 Medical History No medical history recorded. Past Encounters Encounter ID Performer Location Encounter Start Date Encounter Closed Date Diagnosis/Indication Diagnosis SNOMED-CT Code Diagnosis ICD10 Code Diagnosis IMO Codes Diagnosis Note [id number] [facility] [address] [place] [phone] 02/05/2021 08:11:27 02/05/2021 08:54:03 [id number] [place] [address] [address] 01/01/2023 09:39:56 01/01/2023 10:44:35 Low back strain 645425280 S39.012A Patient advised to take medication as directed here. Patient advised to rest initially and then slowly increase activity level. Monitor changes in symptoms such as numbness, tingling or weakness in legs, changes in bowel or bladder habits or worsening back pain. Proper ergonomics discussed. Referral to physical therapy as needed. Patient will call if symptoms worsen or if pain persists greater than 8 weeks. Health Concerns Section Related Observation LastModified by Organization Detai ls LastModified Time None Recorded Concern Status LastModified by Organization Details LastModified Time None Recorded Advance Directives Directive None Recorded Payers Insurance Date Sequence Insurance Name Policy Number Policy Colbert Covered Member ID Colbert Member ID Guarantor Name 01/01/2023 1 [facility] Oliverio Mercer [id number] 1 Oliverio Mercer Notes Date Note Type Note Provider Name and Address Organization Details Recorded Time 01/02/20 23 text/htm l Back Pain/Injury UCReported by PatientHPIFor quality, patient reportstightnessandmuscle spasms. For aggravating factors, patient reportsmovement/positioning. For source of patient information, patient reportsinformation obtained from patientandpatient arrived at urgent care ambulatory. For location, patient reportspain is not radiatingandlower back. For duration, patient reports2 days. For alleviating factors, patient reportsheatandrest.INitiall;y when stretched back felt a small amount pain, the next day pain was worse Tony Santamaria MD [address] [place], [address], [place] - [facility] 01/01/2023 10:44:38
--- OUTSIDE RECORDS SUMMARY | 2025-05-17 11:58 | XMS_ITS | Encounter Summary ---
Author Organization [facility] Address [address] [place] [address] Phone Care Team Providers Care Manager Net Name Role Phone Anisha Jameson KELLY Primary Care Provider [phone] Rabia Payne MD Unavailable [phone] Encounter Details Date Type Department Care Team (Late st Contact Info) Description 10/26/2024 Procedure Pass [facility] Admitting Dept Virtual Department [address] [place] [address] Social History Tobacco Use Types Packs/Day Years Used Date Smoking Tobacco: Former Cigarettes 1 4 0 03/07/2000 - 03/07/2004 Smokeless Tobacco: Never Alcohol Use Standard Drinks/Week Comments Yes 0 [...] high school, GED, job training, learning the Amharic language, technical skills, or developing parenting skills)? [...] your housing situation today? I have cameron collazo 06/13/2023 How many times have you move [...] on file documented as of this encounter Plan of Treatment Upcoming Encounters Date Type Department Care Team (Late st Contact Info) Description 05/25/2025 11:00 AM EST Office Visit [facility] [address] [place] [address] Unknown, Unknown, MD Sanchez, Marjorie [place], YADY [address] [place] [address] 06/10/2025 8:45 AM EST Office Visit [facility] [address] [facility] [place] [address] Anisha Jameson FNP 234 [facility] [address] [place] [address] [email or web address] documented as of this encounter Visit Diagnoses Not on filedocumented in this encounter Additional Health Concerns Assessment Noted Time PHQ-2 Depression Total Score: 0 06/13/20 23 10:47 AM EST documented as of this encounter Care Teams Manager Net Relationship Specialty Start Date End Date Anisha Jameson FNP [address] [facility] [address] [place] [address] [email or web address] PCP - General Family Medicine 03/21/21 Rabia Payne MD [address] [place] [address] [address] [place] [address] [email or web address] Insurance Assigned Provider 10/12/23 documented as of this encounter Additional Source Comments The information contained in this document represents components of the legal health record. It is not the complete legal health record.[facility]
--- OUTSIDE RECORDS SUMMARY | 2025-05-17 11:58 | XMS_ITS | Encounter Summary ---
Author Organization [facility] Address [address] [place] [phone] Phone Care Team Providers Care Special Effects Artist Name Role Phone Anisha Jameson Primary Care Provider [phone] Rabia Payne MD Unavailable Reason for Visit * Reason Onset Date Comments Swelling in armpit 05/14/2025 Encounter Details Date Type Department Care Team ([facility] st Contact Info) Description 05/14/2025 Telephone [facility] [address] [place] [address] Anisha Jameson FNP [address] [facility] [address] [place] [address] [email or web address] Swelling in armpit Social History Tobacco Use Types Packs/Day Years [...] high school, GED, job training, learning the Cypriot language, technical skills, or developing parenting skills)? [...] on file documented as of this encounter Progress Notes * Rabia Collins RN - 05/17/2025 9:07 AM EST Spoke to patient, advised ultrasound has been ordered, phone number given for [facility] self scheduling. * Anisha Jameson FNP - 05/17/2025 8:27 AM ESTAddended by: ANISHA JAMESON on: 05/17/2025 08:27 AM Modules accepted: Orders * Anisha Jameson FNP - 05/17/2025 8:26 AM EST Yes, I signed for the ultrasound order. * Harriet Morris LPN - 05/14/2025 12:41 PM EST Called Oliverio keller/ DAVID and will send this to Anisha for advisement. If area becomes red, warm, painful, enlarges, or febrile will go back to for eval. Can we order UL for him? Thanks * Harriet Morris LPN - 05/14/2025 11:33 AM EST Can this wait for PCP on Saturday see UC noted of 05/14/25? Thanks * Ximena Sandhu - 05/14/2025 11:22 AM EST Pt called in. He went to for some weird bumps on his armpit. did notice some swelling and told pt he should get an US done. He is wondering if this is something that can be ordered. Central Support Elevated Guard (Please do not reply to this user; this inbox is not monitored.) Thank you. documented in this encounter Plan of Treatment Upcoming Encounters Date Type Department Care Team (Late st Contact Info) Description 05/25/2025 11:00 AM EST Office Visit [facility] [address] [place] [address] Unknown, Unknown, MD Sanchez, Marjorie Lee, SUBACUTE NURSE [address] [place] [address] 06/10/2025 8:45 AM EST Office Visit [facility] [address] [place] [address] Anisha Jameson FNP [address] [address] [email or web address] Scheduled Orders Name Type Priority Associated Diagnoses Orde r Schedule US Axilla - Not Breast Imaging (Left) Imaging Routine LAD (lymphadenopathy), axillary Expected: 05/17/2025, Expires: 08/17/2025 documented as of this encounter Visit Diagnoses Diagnosis LAD (lymphadenopathy), axillary- Primary documented in this encounter Additional Health Concerns Assessment Noted Time PHQ-2 Depression Total Score: 0 06/13/20 23 10:47 AM EST documented as of this encounter Care Teams Special Effects Artist Relationship Specialty Start Date End Date Anisha Jameson, KELYL [address] [place] [id number] PCP - General Family Medicine 03/21/21 Rabia Payne MD [address] [place] [address] [address] [place] [address] [email or web address] Insurance Assigned Provider 10/12/23 documented as of this encounter Additional Source Comments The information contained in this document represents components of the legal health record. It is not the complete legal health record.[facility]
== END 2025-05-17 10:20 | disposition home or self-care (01) ==
PROVIDERS: Emergency Provider Emergency Medicine; PCP Nurse Practitioner Family
DX: R59.1 Generalized enlarged lymph nodes (principal)
CPT/HCPCS: 99282